=== PATIENT | male | born 1990 | race African-American/Black ===

== ENCOUNTER 2019-01-28 09:12 | Emergency (ER) | payer OTHER ==
[2019-01-28 09:20] VITALS: BP 138/80; PULSE 74; TEMP 98.3; BMI 29.0
[2019-01-28] MEDS ORDERED: ACETAMINOPHEN 325 MG TABLET (FP) PO ONE (10:03)
--- NOTE | 2019-01-28 10:51 | PDOC ---
History of Present Illness - General Chief Complaint: Pain, Acute Stated Complaint: RT SHOULDER PAIN Time Seen by Provider: 01/28/19 09:36 History Source: Patient Exam Limitations: No Limitations - History of Present Illness Initial Comments: 01/28/19 10:44 28 year old male with history of seizures for over 10 years currently on Depakote without any recent change in medication presents to ED with complaints of right shoulder and left ankle pain. Patient states was sleeping and woke up on the floor with his uncle standing over him. As per his uncle patient had generalized tremors on the carpeted floor without incontinence for about 30 seconds. Pt was groggy following sz but arousable. Occurred: reports: just prior to arrival Severity: reports: mild Pain Location: reports: upper extremity Method of Injury: Yes: fall Modifying Factors: improves with: None Associated Symptoms (Fall): other Past History - Travel Traveled outside of the country in the last 30 days: No Close contact w/someone who was outside of country & ill: No - Past Medical History Allergies/Adverse Reactions: Allergies Allergy/AdvReac Type Severity Reaction Status Date / Time No Known Allergies Allergy Verified 01/28/19 09:15 COPD: No Seizures: Yes (last 11/02) - Suicide/Smoking/Psychosocial Hx Smoking History: Never smoked Hx Alcohol Use: No Drug/Substance Use Hx: No Patient Lives Alone: No Lives with/in: parents Review of Systems - Review of Systems Able to Perform ROS?: No Is the patient limited [place] proficient: No Constitutional: No: Symptoms Reported HEENTM: No: Symptoms Reported Respiratory: No: Symptoms reported Cardiac (ROS): No: Symptoms Reported ABD/GI: No: Symptoms Reported Musculoskeletal: Yes: Joint Pain (rt shoulder and left ankle). No: Joint Swelling, Muscle Weakness Integumentary: No: Symptoms Reported Neurological: No: Symptoms reported *Physical Exam - Vital Signs Last Vital Signs Temp Pulse Resp BP Pulse Ox 98.3 F 74 18 138/80 99 01/28/19 09:16 01/28/19 09:16 01/28/19 09:16 01/28/19 09:16 01/28/19 09:16 - Physical Exam General Appearance: Yes: Nourished, Appropriately Dressed. No: Apparent Distress Neck: positive: Supple. negative: Tender, Decreased range of motion Respiratory/Chest: positive: Lungs Clear, Normal Breath Sounds. negative: Respiratory Distress, Accessory Muscle Use Cardiovascular: positive: Regular Rhythm, Regular Rate. negative: Murmur Gastrointestinal/Abdominal: positive: Soft, Tenderness Extremity: positive: Normal Capillary Refill, Normal Inspection, Normal Range of Motion. negative: Tender (noted crepitus with lateral raise of rt arm. No tenderness, edema or erythema to left mallelous. ) Integumentary: positive: Normal Color, Warm, Moist Neurologic: positive: Normal Mood/Affect, Motor Strength 5/5 (ambulatory without limp) Moderate Sedation - Procedure Monitoring Vital Signs: Procedure Monitoring Vital Signs Temperature 98.3 F 01/28/19 09:16 Pulse Rate 74 01/28/19 09:16 Respiratory Rate 18 01/28/19 09:16 Blood Pressure 138/80 01/28/19 09:16 O2 Sat by Pulse Oximetry (%) 99 01/28/19 09:16 ED Treatment Course - RADIOLOGY Radiology Studies Ordered: Category Date Time Status SHOULDER-RIGHT [RAD] Stat Radiology 01/28/19 10:02 Taken - Medications Given in the ED: ED Medications Discontinued Medications Generic Name Dose Route Start Last Admin Trade Name Freq PRN Reason Stop Dose Admin Acetaminophen 650 mg 01/28/19 10:03 01/28/19 10:11 Tylenol - PO 01/28/19 10:04 650 mg ONCE ONE Administration Medical Decision Making - Medical Decision Making 01/28/19 10:49 CC: rt shoulder and left ankle pain after falling off his bed which is approx. 2 feet off the ground after having a sz which he has 1-2 times /year (last 1 was 5 months ago and was seen by his neurologist) Exam: no neurofocal deficits. noted crepitus to right shoulder Plan: tylenol and shoulder xray 01/28/19 10:56 xray - for acute findings. Discharge home to f/u with neurologist *DC/Admit/Observation/Transfer Diagnosis at time of Disposition: Shoulder pain, right - Discharge Dispostion Disposition: HOME Condition at time of disposition: Good - Referrals Referrals: Cookie Cantu NP [Primary Care Provider] - - Patient Instructions Printed Discharge Instructions: DI for Shoulder Pain Additional Instructions: Please follow up with your neurologist. Take your meds as prescribed. Also follow up with your physician for your annual physical - Post Discharge Activity
== END 2019-01-28 11:15 | disposition home or self-care (01) ==
LOC: JER 09:12
DX: M25.511 Pain in right shoulder (principal); W18.39XA Other fall on same level, initial encounter; Y93.89 Activity, other specified; Y92.002 Bathroom of unspecified non-institutional (private) residence as the place of occurrence of the external cause
CPT/HCPCS: 73030-TC-RT-FY; 99281-25

== ENCOUNTER 2024-07-22 03:06 | Emergency (ER) | payer OTHER ==
[2024-07-22 03:17] VITALS: BP 124/74; PULSE 87; RESP 16; TEMP 98.7; BMI 29.1
[2024-07-22] MEDS ORDERED: KETOROLAC TROMETHAMINE 30 MG/1 ML VIAL ONE (04:14)
[2024-07-22] MEDS: KETOROLAC TROMETHAMINE 30 MG/1 ML VIAL IM ONE (04:19)
[2024-07-22] MEDS ORDERED: DEXAMETHASONE SOD PHOSPHATE 10 MG/1 ML VIAL ONE (04:38)
[2024-07-22] MEDS: DEXAMETHASONE SOD PHOSPHATE 10 MG/1 ML VIAL IM ONE (04:42)
[2024-07-22 06:01] LABS: THROAT:GRP A STREP DETECTED (NOTDETECTED)
[2024-07-22] MEDS: PENICILLIN G BENZATHINE 1,200,000 UNIT/2 ML PFS IM ONE (06:23)
== END 2024-07-22 06:24 | disposition home or self-care (01) ==
LOC: JER 03:06
PROC: 3E023GC Introduction of Other Therapeutic Substance into Muscle, Percutaneous Approach (ICD-10-PCS; principal; 2024-07-22)
PROC: 3E0133Z Introduction of Anti-inflammatory into Subcutaneous Tissue, Percutaneous Approach (ICD-10-PCS; 2024-07-22)
PROC: 3E02329 Introduction of Other Anti-infective into Muscle, Percutaneous Approach (ICD-10-PCS; 2024-07-22)
DX: J02.9 Acute pharyngitis, unspecified (principal); B95.0 Streptococcus, group A, as the cause of diseases classified elsewhere; Z20.822 Contact with and (suspected) exposure to COVID-19
CPT/HCPCS: 0241U-QW; 87651; 99284-25; J1100

== ENCOUNTER 2024-12-31 10:29 | Emergency (ER) | payer OTHER ==
[2024-12-31 10:42] VITALS: BP 140/70; PULSE 79; RESP 18; TEMP 98.4; BMI 33.3
[2024-12-31 12:20] LABS: BASO % 1.1 % (0-2.0); EOS % 2.3 % (0-4.5); HEMATOCRIT 41.4 % (35.4-49); HEMOGLOBIN 13.7 GM/dL (11.7-16.9); LYMPH % 31.9 % (8-40); MCH 31.2 pg (25.7-33.7); MCHC 33.2 g/dl (32.0-35.9); MEAN CELL VOLUME 93.8 fl (80-96); MEAN PLT VOLUME 7.9 fl (7.5-11.1); MONO % 11.4 % (3.8-10.2); NEUT % 53.3 % (42.8-82.8); PLATELET COUNT 213 10^3/uL (134-434); RBC 4.41 M/mm3 (4.00-5.60); RDW 13.7 % (11.9-15.9); WHITE BLOOD COUNT 6.1 K/mm3 (4.0-10.0)
[2024-12-31 12:42] LABS: POTASSIUM 4.2 mmol/L (3.5-5.1)
[2024-12-31 12:44] LABS: ALBUMIN 3.4 g/dl (3.4-5.0); BLOOD UREA NITROGEN 18.6 mg/dL (7-18)
[2024-12-31 12:47] LABS: CALCIUM 8.8 mg/dL (8.5-10.1)
[2024-12-31 12:48] LABS: BILIRUBIN,TOTAL 0.3 mg/dL (0.2-1); TOT PROT 7.9 g/dl (6.4-8.2)
[2024-12-31 13:37] LABS: HIV INTERPRETATION NEGATIVE (NEGATIVE)
== END 2024-12-31 14:15 | disposition home or self-care (01) ==
LOC: JER 10:29
DX: R25.1 Tremor, unspecified (principal); M79.10 Myalgia, unspecified site; R68.83 Chills (without fever); R07.9 Chest pain, unspecified; R06.02 Shortness of breath; R11.2 Nausea with vomiting, unspecified; R19.7 Diarrhea, unspecified; Z20.822 Contact with and (suspected) exposure to COVID-19
CPT/HCPCS: 0241U-QW; 36415; 71045-TC-FY; 80053; 80164; 80178; 83735; 84484; 85025; 86803; 87389; 93005; 93010; 99285-25